=== PATIENT | male | born 1995 | race African-American/Black ===

== ENCOUNTER 2017-12-09 20:05 | Emergency (ER) | payer OTHER ==
[~2017-12-09] VITALS: Ht 177.8 cm; Wt 68.0 kg
[2017-12-09 20:15] VITALS: BP 135/80
[2017-12-09] MEDS ORDERED: NORCO 5-325 TA1 EACH PO (20:35)
[2017-12-09] MEDS ORDERED: BACTRIM DS TAB1 EACH PO (20:35)
[2017-12-09] MEDS ORDERED: KEFLEX500 M1 PO (20:35)
== END 2017-12-09 20:52 | disposition home or self-care (01) ==
LOC: M.ERS 20:05
DX: L02.214 Cutaneous abscess of groin (principal); F17.210 Nicotine dependence, cigarettes, uncomplicated; Z88.6 Allergy status to analgesic agent